=== PATIENT | male | born 1935 | race Caucasian/White ===

== ENCOUNTER 2016-11-21 04:14 | Emergency (ER) | payer OTHER ==
--- NOTE | 2016-11-21 04:54 | PROVIDER DOCUMENTATION ---
HPI-Male Problem - General Chief Complaint: Urinary Retention Stated Complaint: URINARY RETENTION Time Seen by Provider: 11/21/16 04:48 Source: patient Allergies/Adverse Reactions: Patient Allergies Allergy/AdvReac Type Severity Reaction Status Date / Time latex Allergy HIVES Verified 12/13/15 04:59 Home Medications: Home Medication List Medication Instructions Recorded Confirmed Last Taken Type Colesevelam [Welchol] 625 mg PO TID #0 tablet 08/09/14 12/13/15 12/12/15 21:00 Rx Omeprazole [Prilosec] 40 mg PO DAILY@0700 #0 capsule 08/09/14 12/13/15 12/12/15 05:00 Rx PRAVAstatin [Pravachol] 10 mg PO QHS #0 tablet 08/09/14 12/13/15 12/12/15 22:00 Rx Potassium Chloride 20 meq PO DAILY #0 tab.er.prt 08/09/14 12/13/15 12/12/15 05: 00 Rx Aspirin 1 tab PO DAILY 11/28/15 12/13/15 12/12/15 05:00 History Carvedilol [Coreg] 6.25 mg PO DAILY 11/28/15 12/13/15 12/12/15 05:00 History Hydrocodone/Acetaminophen [[place] 1 each PO Q4H PRN PRN #0 tablet 11/28/1511/29/15 Rx 7.5-325 Tablet] Tamsulosin [Flomax] 0.4 mg PO QHS #0 capsule 11/28/15 12/13/15 12/12/15 04:00 Rx Ciprofloxacin HCl [Cipro] 500 mg PO BID #10 tablet 11/21/16 Unknown Rx - History of Present Illness-Male Nature of Presenting Problem: HX OR PRIOR RETENTION AND TX FOR PROSTATE CA W/RADIATION FEW YRS AGO //PT UNABLE TO VOID FOR PAST 6 HRS ..NO OTHER COMPLAINTS Location of Complaint: reports: suprapubic Radiation: reports: suprapubic Quality of Pain: reports: pressure Severity in ED: reports: moderate Onset/Duration: reports: 4-6 hours ago Timing: reports: still present, constant, getting worse Urinary Symptoms: reports: retention Associated Symptoms: reports: problems with erection. denies: inguinal mass , penile discharge Associated Symptoms: denies: constipation, diarrhea, fever/chills, nausea, vomiting Similar Symptoms Previously?: Yes Recently seen or treated by another doctor?: No Review of Systems - Adult - REVIEW OF SYSTEMS - ADULT Constitutional: reports: see HPI All Other Systems: Reviewed and Negative Past History - Adult - PAST MEDICAL HISTORY-ADULT Review of Records: reports: Old Records Reviewed, Nursing Assessment Review, Medications Reviewed, Social history reviewed & non-contributory. Major Childhood Illnesses: reports: denies history Cardiovascular: reports: denies history Respiratory: reports: denies history Gastrointestinal: reports: polyps, other (chronic diarrhea) Obstetrical/Gynecological: reports: denies history Genitourinary: reports: prostate cancer Musculoskeletal: reports: denies history Neurological: reports: denies history Endocrine/Immune: reports: thyroid disorder (hypo thyroid), other (hypokalemia) Other Conditions: reports: denies history - PRIOR SURGERIES/PROCEDURES Surgical/Procedure History: reports: bowel surgery (colectomy with 20 in of small bowel removed) - PRIOR HOSPITALIZATIONS Prior Hospitalizations: reports: for similar symptoms - IMMUNIZATION STATUS Childhood Immunizations: UTD Flu Vaccine: UTD - FAMILY HISTORY Family History: reviewed, not pertinent - SOCIAL HISTORY Smoking: denies Substance Use: none/never Alcohol Use Frequency: never Living Situation: family Physical Exam-General - PHYSICAL EXAM-ADULT Initial Vital Signs Reviewed: Yes - CONSTITUTIONAL General Appearance: appears well, alert, no apparent distress - EYES Eyes: PERRL/EOMI, pink conjunctivae - HEAD, EARS, NOSE, MOUTH & THROAT HENMT: normocephalic/atraumatic, moist mucous membranes, normal ENT inspection - NECK Neck: non-tender - RESPIRATORY Respiratory: chest non-tender, lungs clear, normal breath sounds - CARDIOVASCULAR Cardiovascular: normal peripheral pulses, regular rate, rhythm, no edema - GASTROINTESTINAL (ABDOMEN) Abdominal Exam: normal bowel sounds, soft, no organomegaly, other (SUPRAPUBIC TENDERNESS AND BLADDER DISTENTION//SCAN POSTIVE W/360 CC) - LYMPHATIC Lymphatic: no adenopathy - MUSCULOSKELETAL Back Exam: normal inspection, no CVA tenderness, no vertebral tenderness Extremity: normal range of motion, non-tender, normal gait, normal inspection - SKIN Integumentary: normal color, normal turgor, warm/dry - 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 These instructions are being provided to you so you can have an understanding of how to care for yourself upon discharge. Upon discharge from the Emergency Department, you are responsible for making arrangements for follow-up care by a physician of your choice. Take all prescribed medications as directed. Return to the Emergency Department immediately for any new or worsening symptoms. You may call the Physician Referral phone number at [phone] to obtain a list of Physicians who are taking new patients. Prescriptions: Ciprofloxacin HCl [Cipro] 500 mg PO BID #10 tablet Referrals: Sarah Jaramillo MD [Primary Care Provider] - Jeromy Adler MD [STAFF PHYSICIAN] -
[2016-11-21 05:17] VITALS: BP 158/78
[2016-11-21 05:18] LABS: URINE MICRO REVIEW NEEDED? NO; URINE SOURCE CATH
[2016-11-21 05:21] LABS: BILIRUBIN URINE NEGATIVE (NEGATIVE); BLOOD URINE NEGATIVE (NEGATIVE); COLOR YELLOW; GLUCOSE URINE NEGATIVE (NEGATIVE); LEUKOCYTES URINE NEGATIVE (NEGATIVE); NITRITE URINE NEGATIVE (NEGATIVE); PH URINE 5.5; PROTEIN URINE NEGATIVE (NEGATIVE); SP GRAVITY URINE 1.014; TURBIDITY URINE CLEAR (CLEAR); UROBILINOGEN URINE NORMAL (NORMAL)
[2016-11-21 05:22] LABS: UR EPITHELIAL CELLS <10 /HPF (<10); URINE BACTERIA NEGATIVE /HPF; URINE RBC <10 /HPF (<10); URINE WBC <10 /HPF (<10)
== END 2016-11-21 05:17 | disposition home or self-care (01) ==
LOC: ED 04:14
DX: R33.9 Retention of urine, unspecified (principal); R10.30 Lower abdominal pain, unspecified; R19.7 Diarrhea, unspecified; Z85.46 Personal history of malignant neoplasm of prostate; E03.9 Hypothyroidism, unspecified; Z90.49 Acquired absence of other specified parts of digestive tract; Z79.899 Other long term (current) drug therapy; Z79.82 Long term (current) use of aspirin
CPT/HCPCS: 51702; 51798; 81001; 99283